=== PATIENT | female | born 1935 | race Caucasian/White ===

== ENCOUNTER 2021-05-01 23:03 | Inpatient (IN) | payer MEDICARE, OTHER ==
[2021-05-01 23:36] LABS: Hemoglobin 12.7 g/dL (12.0-16.0); Mean Corpuscular HGB CONC 33.2 g/dL (32.0-36.0); Mean Corpuscular Hemoglobin 29.9 pg (27.0-31.0); Mean Corpuscular Volume 90.1 fL (78.0-98.0); Mean Platelet Volume 8.3 fL (7.4-10.4); Platelet Count 364 thou/uL (130-400); RBC Distribution Width 11.2 % (11.5-14.5); Red Blood Cell (RBC) Count 4.26 mill/uL (4.20-5.40); White Blood Cell (WBC) Count 16.2 thou/uL (4.8-10.8)
[2021-05-01] MEDS ORDERED: hydrALAZINE 20 MG/ML VIAL ONE (23:55)
[2021-05-01] MEDS ORDERED: Nitroglycerin 2% Ointment 1 INCH/1 GM Packet ONE (23:55)
[2021-05-01 23:56] LABS: ALT (SGPT) 18 U/L (8-55); AST (SGOT) 23 U/L (5-34); Albumin 3.7 g/dL (3.4-4.8); Alkaline Phosphatase 81 U/L (40-110); Anion Gap 21 mmol/L (10-20); BUN (Urea Nitrogen) 29 mg/dL (9.8-20.1); Bilirubin, Total 0.4 mg/dL (0.2-1.2); Calc. Creatinine Clearance 0 mL/min (70-130); Calcium 10.3 mg/dL (7.8-10.44); Carbon Dioxide 20 mmol/L (23-31); Chloride 97 mmol/L (98-107); Globulin 3.9 g/dL (2.4-3.5); Glucose 133 mg/dL (83-110); Potassium 4.3 mmol/L (3.5-5.1); Protein, Total 7.6 g/dL (5.8-8.1); Sodium 134 mmol/L (136-145)
[2021-05-02 00:10] LABS: Lymphocytes 4 % (21-51); MDiff Complete? YES; Monocytes 7 % (0-10); Neutrophil 89 % (42-75); Platelet Morphology Comment Appears Adequate; RBC Morphology Normal
[2021-05-02] MEDS ORDERED: hydrALAZINE 20 MG/ML VIAL ONE (00:30)
[2021-05-02] MEDS ORDERED: cefTRIAXone\\ROCEPHIN 1 GM VIAL ONE (00:36)
[2021-05-02 01:20] LABS: Bilirubin Negative (Negative); Blood, Urine Trace (Negative); Clarity Clear (Clear); Glucose, Urine (Dipstick) Normal (Negative); Ketone, Urine 80 mg/dL (Negative); Leukocyte Negative Leu/uL (Negative); Nitrite Negative (Negative); Protein, Urine (Dipstick) 70 mg/dL (Neg-Trace); Specific Gravity, Urine 1.029 (1.002-1.036); Squamous Epithelial None Seen HPF (0-3); Urobilinogen Normal mg/dL (Less than 2); pH, Urine 5.5 (5.0-9.0)
[2021-05-02 01:22] LABS: Bacteria/HPF 1+ HPF (None Seen)
[2021-05-02] MEDS ORDERED: Azithromycin 500 MG VIAL ONE (01:27)
[2021-05-02] MEDS ORDERED: Ondansetron PF 4 MG/2 ML Vial ONE (01:27)
[2021-05-02] MEDS ORDERED: Pantoprazole 40 MG VIAL ONE (01:38)
[2021-05-02] MEDS ORDERED: Labetalol HCl 100 MG/20 ML VIAL SLOW IVP PRN (01:41)
[2021-05-02 02:14] LABS: SARS-CoV-2 NAA Rapid Test Not Detected (NotDetected)
[2021-05-02 02:21] LABS: Hemoglobin 11.4 g/dL (12.0-16.0)
[2021-05-02 02:45] LABS: Troponin I 0.029 ng/mL (< 0.028)
[2021-05-02] MEDS: Lactated Ringer's 1,000 ML IV SCH ×2 (05:23→18:55)
[2021-05-02 05:54] LABS: Band 2 % (5-11); Hemoglobin 10.8 g/dL (12.0-16.0); Lymphocytes 4 % (21-51); MDiff Complete? YES; Mean Corpuscular HGB CONC 33.9 g/dL (32.0-36.0); Mean Corpuscular Hemoglobin 30.8 pg (27.0-31.0); Mean Platelet Volume 7.5 fL (7.4-10.4); Monocytes 4 % (0-10); Neutrophil 90 % (42-75); Platelet Count 324 thou/uL (130-400); Platelet Morphology Comment Appears Adequate; RBC Distribution Width 11.2 % (11.5-14.5); RBC Morphology Normal; White Blood Cell (WBC) Count 14.2 thou/uL (4.8-10.8)
[2021-05-02 06:05] LABS: Troponin I 0.044 ng/mL (< 0.028)
[2021-05-02 06:10] LABS: ALT (SGPT) 13 U/L (8-55); AST (SGOT) 17 U/L (5-34); Alkaline Phosphatase 66 U/L (40-110); Anion Gap 17 mmol/L (10-20); BUN (Urea Nitrogen) 30 mg/dL (9.8-20.1); Bilirubin, Total 0.3 mg/dL (0.2-1.2); Calc. Creatinine Clearance 36 mL/min (70-130); Carbon Dioxide 22 mmol/L (23-31); Chloride 102 mmol/L (98-107); Globulin 2.5 g/dL (2.4-3.5); Glucose 121 mg/dL (83-110); Potassium 4.3 mmol/L (3.5-5.1); Protein, Total 5.5 g/dL (5.8-8.1); Sodium 137 mmol/L (136-145)
[2021-05-02] MEDS ORDERED: Enoxaparin Sodium 30 MG/0.3 ML SYRINGE SC SCH (09:00)
[2021-05-02] MEDS: Cefepime 2 GM in Sodium Chloride 0.9% 100 ML IVPB SCH ×2 (09:26→23:29)
[2021-05-02] MEDS: Pantoprazole 80 MG in Sodium Chloride 0.9% 100 ML IVPB SCH ×3 (09:26→20:11)
[2021-05-02 10:28] LABS: Hemoglobin 9.9 g/dL (12.0-16.0)
[2021-05-02] MEDS ORDERED: Lidocaine 1% PF 5 ML VIAL ONE (18:03)
[2021-05-02] MEDS ORDERED: PROPOFOL 200 MG/20 ML VIAL ONE (18:03)
[2021-05-03] MEDS: Ondansetron PF 4 MG/2 ML Vial IVP PRN (04:27)
[2021-05-03] MEDS: Pantoprazole 80 MG in Sodium Chloride 0.9% 100 ML IVPB SCH (04:32)
[2021-05-03] MEDS: Lactated Ringer's 1,000 ML IV SCH ×2 (08:38→22:06)
[2021-05-03] MEDS: Cefepime 2 GM in Sodium Chloride 0.9% 100 ML IVPB SCH ×2 (08:39→21:25)
[2021-05-03 12:15] LABS: #Lymphocytes 0.7 thou/uL (1.20-3.40); #Monocytes 1.5 thou/uL (0.11-0.59); #Neutrophils 10.7 thou/uL (1.40-6.50); %Basophils 0.2 % (0.0-1.0); %Eosinophils 0.3 % (0.0-10.0); %Lymphocytes 5.5 % (21.0-51.0); %Monocytes 11.5 % (0.0-10.0); %Neutrophils 82.6 % (42.0-75.0); Hemoglobin 10.7 g/dL (12.0-16.0); Mean Corpuscular HGB CONC 33.1 g/dL (32.0-36.0); Mean Corpuscular Hemoglobin 30.5 pg (27.0-31.0); Mean Corpuscular Volume 92.1 fL (78.0-98.0); Mean Platelet Volume 7.3 fL (7.4-10.4); Platelet Count 276 thou/uL (130-400); RBC Distribution Width 11.4 % (11.5-14.5); Red Blood Cell (RBC) Count 3.51 mill/uL (4.20-5.40)
[2021-05-03 12:25] LABS: INR-International Normal Ratio 1.2; Prothrombin Time 15.2 sec (12.0-14.7)
[2021-05-03 12:26] LABS: PTT 44.3 sec (22.9-36.1)
[2021-05-03 12:33] LABS: Anion Gap 13 mmol/L (10-20); BUN (Urea Nitrogen) 24 mg/dL (9.8-20.1); Calc. Creatinine Clearance 36 mL/min (70-130); Calcium 9.4 mg/dL (7.8-10.44); Carbon Dioxide 22 mmol/L (23-31); Chloride 106 mmol/L (98-107); Glucose 89 mg/dL (83-110); Potassium 4.1 mmol/L (3.5-5.1); Sodium 137 mmol/L (136-145)
[2021-05-03] MEDS ORDERED: Sodium Bicarbonate 2.5 MEQ/5 ML VIAL ONE (14:04)
[2021-05-03] MEDS ORDERED: Lidocaine 1% PF 5 ML VIAL ONE (14:04)
[2021-05-03 17:08] LABS: Actual Bicarbonate (HCO3a) 16.9 mEq/L (22-28); Base Excess (BEa) -6.2 mEq/L (-2.0 to +3.0); CO2 Tension 27.1 mmHg (35.0-45.0); Calcium, Ionized (arterial) 1.28 mmol/L (1.12-1.30); Carboxyhemoglobin (COHb) 0.3 gm% (0.0-3.0); O2 Tension (PaO2), arterial 90.5 mmHg (> 60.0); Potassium - ABG Lab 3.96 mmol/L (3.70-5.30); pH, Arterial 7.41 (7.35-7.45)
[2021-05-03 17:12] LABS: ALV-art Gradient 588.625 mmHg (0-20); Puncture Site RRA
[2021-05-03 17:28] LABS: #Basophils 0.2 thou/uL (0.0-0.2); #Lymphocytes 0.3 thou/uL (1.20-3.40); #Monocytes 1.3 thou/uL (0.11-0.59); #Neutrophils 12.4 thou/uL (1.40-6.50); %Basophils 1.1 % (0.0-1.0); %Eosinophils 0.1 % (0.0-10.0); %Lymphocytes 1.9 % (21.0-51.0); %Monocytes 9.3 % (0.0-10.0); %Neutrophils 87.6 % (42.0-75.0); Hemoglobin 11.8 g/dL (12.0-16.0); Mean Corpuscular HGB CONC 32.3 g/dL (32.0-36.0); Mean Corpuscular Hemoglobin 29.7 pg (27.0-31.0); Mean Platelet Volume 7.3 fL (7.4-10.4); Platelet Count 279 thou/uL (130-400); RBC Distribution Width 11.4 % (11.5-14.5); Red Blood Cell (RBC) Count 3.99 mill/uL (4.20-5.40); White Blood Cell (WBC) Count 14.2 thou/uL (4.8-10.8)
[2021-05-03 17:58] LABS: ALT (SGPT) 15 U/L (8-55); AST (SGOT) 23 U/L (5-34); Albumin 3.1 g/dL (3.4-4.8); Alkaline Phosphatase 71 U/L (40-110); Anion Gap 21 mmol/L (10-20); BUN (Urea Nitrogen) 25 mg/dL (9.8-20.1); Bilirubin, Total 0.5 mg/dL (0.2-1.2); Calc. Creatinine Clearance 33 mL/min (70-130); Calcium 9.2 mg/dL (7.8-10.44); Carbon Dioxide 16 mmol/L (23-31); Chloride 105 mmol/L (98-107); Globulin 3.1 g/dL (2.4-3.5); Glucose 97 mg/dL (83-110); Potassium 4.3 mmol/L (3.5-5.1); Protein, Total 6.2 g/dL (5.8-8.1); Sodium 138 mmol/L (136-145)
[2021-05-03] MEDS ORDERED: Heparin 10,000 UNITS/ 10 ML VIAL SLOW IVP SCH (21:30)
[2021-05-03] MEDS ORDERED: Melatonin 3 MG TAB PO SCH (22:30)
[2021-05-03] MEDS: Heparin 25,000 units/D5W 500 ML IVPB SCH (22:36)
[2021-05-03 22:50] LABS: Hemoglobin 11.8 g/dL (12.0-16.0); Platelet Count 287 thou/uL (130-400)
[2021-05-03 23:18] LABS: Critical Call Chem Troponin I RESULT DECREASING; Troponin I 0.689 ng/mL (< 0.028)
[2021-05-03 23:27] LABS: PTT Greater than 250.0 sec (22.9-36.1)
[2021-05-04 03:42] LABS: #Lymphocytes 0.6 thou/uL (1.20-3.40); #Monocytes 1.2 thou/uL (0.11-0.59); #Neutrophils 9.1 thou/uL (1.40-6.50); %Eosinophils 0.4 % (0.0-10.0); %Lymphocytes 5.8 % (21.0-51.0); %Monocytes 11.2 % (0.0-10.0); %Neutrophils 82.7 % (42.0-75.0); Hemoglobin 10.4 g/dL (12.0-16.0); Mean Corpuscular HGB CONC 33.3 g/dL (32.0-36.0); Mean Corpuscular Hemoglobin 30.3 pg (27.0-31.0); Mean Corpuscular Volume 91.1 fL (78.0-98.0); Mean Platelet Volume 7.8 fL (7.4-10.4); Platelet Count 247 thou/uL (130-400); RBC Distribution Width 11.4 % (11.5-14.5); Red Blood Cell (RBC) Count 3.43 mill/uL (4.20-5.40)
[2021-05-04 04:07] LABS: Anion Gap 16 mmol/L (10-20); BUN (Urea Nitrogen) 23 mg/dL (9.8-20.1); Calc. Creatinine Clearance 33 mL/min (70-130); Carbon Dioxide 19 mmol/L (23-31); Chloride 105 mmol/L (98-107); Glucose 111 mg/dL (83-110); Potassium 4.1 mmol/L (3.5-5.1); Sodium 136 mmol/L (136-145)
[2021-05-04 04:20] LABS: PTT Greater than 250.0 sec (22.9-36.1)
[2021-05-04] MEDS ORDERED: ABX RENAL DOSE IVPB PRN (08:08)
[2021-05-04 10:06] LABS: Hemoglobin 11.4 g/dL (12.0-16.0)
[2021-05-04] MEDS: Lactated Ringer's 1,000 ML IV SCH (12:03)
[2021-05-04 16:41] LABS: PTT 140.9 sec (22.9-36.1)
[2021-05-04] MEDS ORDERED: Cefepime 2 GM in Sodium Chloride 0.9% 100 ML IVPB SCH (21:00)
[2021-05-05 02:22] LABS: #Eosinphils 0.1 thou/uL (0.0-0.7); #Lymphocytes 0.6 thou/uL (1.20-3.40); #Monocytes 1.1 thou/uL (0.11-0.59); #Neutrophils 9.4 thou/uL (1.40-6.50); %Basophils 0.3 % (0.0-1.0); %Lymphocytes 5.3 % (21.0-51.0); %Monocytes 10.1 % (0.0-10.0); %Neutrophils 83.4 % (42.0-75.0); Hemoglobin 10.8 g/dL (12.0-16.0); Mean Corpuscular HGB CONC 33.5 g/dL (32.0-36.0); Mean Corpuscular Hemoglobin 30.7 pg (27.0-31.0); Mean Corpuscular Volume 91.7 fL (78.0-98.0); Mean Platelet Volume 7.8 fL (7.4-10.4); Platelet Count 272 thou/uL (130-400); RBC Distribution Width 11.4 % (11.5-14.5); Red Blood Cell (RBC) Count 3.52 mill/uL (4.20-5.40); White Blood Cell (WBC) Count 11.2 thou/uL (4.8-10.8)
[2021-05-05 02:53] LABS: Anion Gap 15 mmol/L (10-20); BUN (Urea Nitrogen) 22 mg/dL (9.8-20.1); Calc. Creatinine Clearance 33 mL/min (70-130); Carbon Dioxide 19 mmol/L (23-31); Chloride 104 mmol/L (98-107); Glucose 123 mg/dL (83-110); Potassium 3.9 mmol/L (3.5-5.1); Sodium 134 mmol/L (136-145)
[2021-05-05] MEDS: Lactated Ringer's 1,000 ML IV SCH ×3 (04:09→13:15)
[2021-05-05 08:28] VITALS: BMI 16.3
[2021-05-05] MEDS: Cefepime 2 GM in Sodium Chloride 0.9% 100 ML IVPB SCH ×2 (09:20→21:20)
[2021-05-05] MEDS ORDERED: Iopamidol 370 76% 50 ML VIAL FS ONE (09:51)
[2021-05-05] MEDS ORDERED: Lidocaine 1% (PF) 30 ML VIAL ONE (10:57)
[2021-05-05] MEDS: Heparin 25,000 units/D5W 500 ML IVPB SCH ×2 (13:19→14:01)
[2021-05-05 21:40] LABS: Hemoglobin 11.2 g/dL (12.0-16.0); Platelet Count 257 thou/uL (130-400)
[2021-05-06] MEDS: Lactated Ringer's 1,000 ML IV SCH ×2 (05:25→16:07)
[2021-05-06] MEDS: Apixaban 2.5 MG TAB PO SCH ×2 (08:38→21:58)
[2021-05-06] MEDS: Cefepime 2 GM in Sodium Chloride 0.9% 100 ML IVPB SCH ×2 (08:39→21:57)
[2021-05-06] MEDS: Ondansetron PF 4 MG/2 ML Vial IVP PRN (16:47)
[2021-05-06] MEDS: Acetaminophen 650 MG/20.3 ML UDCUP PO PRN ×2 (17:17→21:58)
[2021-05-07] MEDS ORDERED: Acetaminophen 325 MG Suppository PR PRN (01:51)
[2021-05-07 04:57] LABS: #Eosinphils 0.3 thou/uL (0.0-0.7); #Lymphocytes 0.7 thou/uL (1.20-3.40); #Monocytes 1.3 thou/uL (0.11-0.59); %Eosinophils 2.5 % (0.0-10.0); %Lymphocytes 5.3 % (21.0-51.0); %Monocytes 10.9 % (0.0-10.0); %Neutrophils 81.4 % (42.0-75.0); Hemoglobin 10.3 g/dL (12.0-16.0); Mean Corpuscular Hemoglobin 30.3 pg (27.0-31.0); Mean Corpuscular Volume 91.9 fL (78.0-98.0); Mean Platelet Volume 7.9 fL (7.4-10.4); Platelet Count 255 thou/uL (130-400); RBC Distribution Width 11.5 % (11.5-14.5); White Blood Cell (WBC) Count 12.3 thou/uL (4.8-10.8)
[2021-05-07 06:22] LABS: Chloride 104 mmol/L (98-107); Potassium 4.2 mmol/L (3.5-5.1); Sodium 134 mmol/L (136-145)
[2021-05-07 06:23] LABS: Calcium 9.1 mg/dL (7.8-10.44); Glucose 95 mg/dL (83-110)
[2021-05-07 06:25] LABS: Anion Gap 13 mmol/L (10-20); Carbon Dioxide 21 mmol/L (23-31)
[2021-05-07 06:27] LABS: Calc. Creatinine Clearance 35 mL/min (70-130)
[2021-05-07 06:28] LABS: BUN (Urea Nitrogen) 21 mg/dL (9.8-20.1)
[2021-05-07] MEDS: Lactated Ringer's 1,000 ML IV SCH ×2 (07:28→13:13)
[2021-05-07] MEDS: Cefepime 2 GM in Sodium Chloride 0.9% 100 ML IVPB SCH ×2 (09:17→19:55)
[2021-05-07] MEDS: Apixaban 2.5 MG TAB PO SCH ×2 (09:18→19:55)
[2021-05-07] MEDS ORDERED: Bisacodyl 10 MG SUPP PR PRN (10:21)
[2021-05-07] MEDS ORDERED: Megestrol Acetate 40 MG TAB PO SCH (14:15)
[2021-05-07] MEDS ORDERED: Furosemide 40 MG/4 ML VIAL SLOW IVP SCH (14:15)
[2021-05-07] MEDS: Megestrol Acetate 40 MG TAB PO SCH (19:54)
[2021-05-07 22:24] LABS: Hemoglobin 10.4 g/dL (12.0-16.0); Platelet Count 289 thou/uL (130-400)
[2021-05-08] MEDS: Megestrol Acetate 40 MG TAB PO SCH (08:47)
[2021-05-08] MEDS: Apixaban 2.5 MG TAB PO SCH ×2 (08:48→21:12)
[2021-05-08] MEDS: Cefepime 2 GM in Sodium Chloride 0.9% 100 ML IVPB SCH ×2 (08:48→21:13)
[2021-05-08] MEDS: Mirtazapine 15 MG TAB PO SCH (21:12)
[2021-05-09] MEDS: Apixaban 2.5 MG TAB PO SCH ×2 (08:14→20:40)
[2021-05-09] MEDS: Cefepime 2 GM in Sodium Chloride 0.9% 100 ML IVPB SCH ×2 (08:15→20:39)
[2021-05-09 09:22] LABS: #Eosinphils 0.4 thou/uL (0.0-0.7); #Lymphocytes 0.6 thou/uL (1.20-3.40); #Monocytes 1.2 thou/uL (0.11-0.59); #Neutrophils 10.3 thou/uL (1.40-6.50); %Basophils 0.3 % (0.0-1.0); %Eosinophils 3.1 % (0.0-10.0); %Monocytes 9.2 % (0.0-10.0); %Neutrophils 82.4 % (42.0-75.0); Hemoglobin 10.7 g/dL (12.0-16.0); Mean Corpuscular Hemoglobin 30.1 pg (27.0-31.0); Mean Corpuscular Volume 91.3 fL (78.0-98.0); Mean Platelet Volume 6.9 fL (7.4-10.4); Platelet Count 327 thou/uL (130-400); RBC Distribution Width 11.7 % (11.5-14.5); Red Blood Cell (RBC) Count 3.55 mill/uL (4.20-5.40); White Blood Cell (WBC) Count 12.5 thou/uL (4.8-10.8)
[2021-05-09 09:35] LABS: INR-International Normal Ratio 1.6; Prothrombin Time 19.1 sec (12.0-14.7)
[2021-05-09 09:45] LABS: ALT (SGPT) 10 U/L (8-55); AST (SGOT) 18 U/L (5-34); Albumin 2.4 g/dL (3.4-4.8); Alkaline Phosphatase 56 U/L (40-110); Anion Gap 13 mmol/L (10-20); BUN (Urea Nitrogen) 30 mg/dL (9.8-20.1); Bilirubin, Total 0.3 mg/dL (0.2-1.2); Calc. Creatinine Clearance 23 mL/min (70-130); Calcium 9.3 mg/dL (7.8-10.44); Carbon Dioxide 21 mmol/L (23-31); Chloride 104 mmol/L (98-107); Globulin 2.9 g/dL (2.4-3.5); Glucose 93 mg/dL (83-110); Potassium 3.7 mmol/L (3.5-5.1); Protein, Total 5.3 g/dL (5.8-8.1); Sodium 134 mmol/L (136-145)
[2021-05-09] MEDS: Dextrose 5 % And 0.9 % NaCl 1,000 ML IV SCH (09:52)
[2021-05-09] MEDS: Bisacodyl 10 MG SUPP PR SCH ×2 (09:56→17:35)
[2021-05-09] MEDS: Senokot S 8.6-50 MG TAB PO SCH ×2 (09:56→20:40)
[2021-05-09] MEDS ORDERED: Morphine 4 MG/ML VIAL SLOW IVP PRN (14:16)
[2021-05-09 14:17] LABS: SARS-CoV-2 PCR by NAA Not Detected (NotDetected)
[2021-05-09] MEDS: Morphine 4 MG/ML VIAL SLOW IVP PRN (17:57)
[2021-05-09] MEDS: Mirtazapine 15 MG TAB PO SCH (20:40)
[2021-05-09 22:01] LABS: Hemoglobin 10.3 g/dL (12.0-16.0); Platelet Count 352 thou/uL (130-400)
[2021-05-10] MEDS: Morphine 4 MG/ML VIAL SLOW IVP PRN ×3 (00:30→12:08)
[2021-05-10] MEDS ORDERED: Sodium Bicarbonate 2.5 MEQ/5 ML VIAL ONE (07:44)
[2021-05-10] MEDS ORDERED: Lidocaine 1% PF 5 ML VIAL ONE (07:44)
[2021-05-10] MEDS: Cefepime 2 GM in Sodium Chloride 0.9% 100 ML IVPB SCH (08:55)
[2021-05-10] MEDS: Senokot S 8.6-50 MG TAB PO SCH ×2 (08:56→21:25)
[2021-05-10] MEDS: Apixaban 2.5 MG TAB PO SCH ×2 (08:56→21:22)
[2021-05-10] MEDS: Dextrose 5 % And 0.9 % NaCl 1,000 ML IV SCH (08:59)
[2021-05-10] MEDS: Lorazepam 2 MG/ML VIAL SLOW IVP PRN (12:55)
[2021-05-10] MEDS ORDERED: Lorazepam 0.5 MG TAB PO SCH (15:30)
[2021-05-10] MEDS: Morphine 4 MG/ML VIAL SLOW IVP SCH ×2 (17:06→21:26)
[2021-05-10] MEDS: Aluminum & Magnesium Hydroxide 60 ML, diphenhydrAMINE 150 MG, Lidocaine 2% Viscous Solu... SSW SCH ×2 (17:07→21:25)
[2021-05-10] MEDS: Lorazepam 2 MG/ML VIAL SLOW IVP SCH (17:41)
[2021-05-10] MEDS: Mirtazapine 15 MG TAB PO SCH (21:24)
[2021-05-11] MEDS: Lorazepam 2 MG/ML VIAL SLOW IVP SCH ×5 (00:07→23:59)
[2021-05-11] MEDS: Morphine 4 MG/ML VIAL SLOW IVP SCH ×7 (02:03→21:15)
[2021-05-11] MEDS: Aluminum & Magnesium Hydroxide 60 ML, diphenhydrAMINE 150 MG, Lidocaine 2% Viscous Solu... SSW SCH ×4 (08:27→21:32)
[2021-05-11] MEDS: Apixaban 2.5 MG TAB PO SCH ×2 (08:27→21:18)
[2021-05-11] MEDS: Senokot S 8.6-50 MG TAB PO SCH ×2 (08:29→21:19)
[2021-05-11] MEDS ORDERED: Cefepime 2 GM in Sodium Chloride 0.9% 100 ML IVPB SCH (09:00)
[2021-05-11] MEDS: Lorazepam 2 MG/ML VIAL SLOW IVP PRN ×2 (15:46→20:08)
[2021-05-11] MEDS: Mirtazapine 15 MG TAB PO SCH (21:18)
[2021-05-11 21:46] LABS: Platelet Count 379 thou/uL (130-400)
[2021-05-12] MEDS: Morphine 4 MG/ML VIAL SLOW IVP SCH ×5 (01:19→17:20)
[2021-05-12] MEDS: Lorazepam 2 MG/ML VIAL SLOW IVP SCH ×4 (06:02→18:10)
[2021-05-12 08:26] VITALS: BP 107/63; TEMP 97.5
[2021-05-12] MEDS: Aluminum & Magnesium Hydroxide 60 ML, diphenhydrAMINE 150 MG, Lidocaine 2% Viscous Solu... SSW SCH ×3 (08:50→17:12)
[2021-05-12] MEDS: Apixaban 2.5 MG TAB PO SCH (08:51)
[2021-05-12] MEDS: Senokot S 8.6-50 MG TAB PO SCH (08:51)
[2021-05-12] MEDS: Morphine 4 MG/ML VIAL SLOW IVP PRN ×2 (15:07→18:17)
== END 2021-05-12 20:03 | disposition hospice, inpatient (51) | DRG 368 ==
LOC: ERS 23:03 → NEURO 05-02 00:55 → IMCU/EMU 05-04 00:16 → 2NO 05-04 18:53 → T4-A 05-07 13:13
PROVIDERS: ADMIT Internal Medicine; ATTEND Family Medicine
PROC: 0DJ08ZZ Inspection of Upper Intestinal Tract, Via Natural or Artificial Opening Endoscopic (ICD-10-PCS; principal; 2021-05-02)
PROC: 06H03DZ Insertion of Intraluminal Device into Inferior Vena Cava, Percutaneous Approach (ICD-10-PCS; 2021-05-05)
PROC: B5191ZZ Fluoroscopy of Inferior Vena Cava using Low Osmolar Contrast (ICD-10-PCS; 2021-05-05)
PROC: 0W9G3ZZ Drainage of Peritoneal Cavity, Percutaneous Approach (ICD-10-PCS; 2021-05-10)
DX: K21.01 Gastro-esophageal reflux disease with esophagitis, with bleeding (principal); Z20.822 Contact with and (suspected) exposure to COVID-19; Z66 Do not resuscitate; Z51.5 Encounter for palliative care; J69.0 Pneumonitis due to inhalation of food and vomit; E43 Unspecified severe protein-calorie malnutrition; I26.99 Other pulmonary embolism without acute cor pulmonale; Z68.1 Body mass index [BMI] 19.9 or less, adult; R18.8 Other ascites; C78.2 Secondary malignant neoplasm of pleura; J91.0 Malignant pleural effusion; F03.90 Unspecified dementia, unspecified severity, without behavioral disturbance, psychotic disturbance, mood disturbance, and anxiety; I16.0 Hypertensive urgency; I10 Essential (primary) hypertension; K44.9 Diaphragmatic hernia without obstruction or gangrene; I08.3 Combined rheumatic disorders of mitral, aortic and tricuspid valves; D64.9 Anemia, unspecified; Z86.73 Personal history of transient ischemic attack (TIA), and cerebral infarction without residual deficits; Z90.49 Acquired absence of other specified parts of digestive tract; Z98.49 Cataract extraction status, unspecified eye; Z79.899 Other long term (current) drug therapy
CPT/HCPCS: 36415; 36600; 37191; 49083; 51701; 70450; 71045; 71275; 74019; 74230; 76536; 76604; 76942; 80048; 80053; 81003; 81015; 82805; 83605; 83615; 83880; 84157; 84443; 84484; 85014; 85018; 85025; 85049; 85379; 85610; 85730; 87040; 87070; 87086; 87149; 87205; 88112; 88305; 93005; 93010; 93306; 93970; 96365; 96367; 96375; C1880; C9113; J0360; J0456; J0692; J0696; J1644; J1940; J1956; J2001; J2060; J2270; J2405; J2704; J3490; J7042; J7120; Q9967; S0179; U0002; U0003; U0005

== ENCOUNTER 2021-05-12 20:42 | Inpatient (IN) | payer OTHER ==
[2021-05-12] MEDS ORDERED: Morphine 4 MG/ML VIAL SLOW IVP PRN (20:50)
[2021-05-12] MEDS ORDERED: Lorazepam 2 MG/ML VIAL SLOW IVP PRN (20:50)
[2021-05-12] MEDS: Scopolamine 1.5 mg/72 hour Patch TOP SCH ×2 (21:11→21:28)
[2021-05-12] MEDS: Morphine 4 MG/ML VIAL SLOW IVP SCH (21:30)
[2021-05-13] MEDS: Lorazepam 2 MG/ML VIAL SLOW IVP SCH ×4 (00:05→18:07)
[2021-05-13] MEDS: Morphine 4 MG/ML VIAL SLOW IVP SCH ×9 (01:21→22:22)
[2021-05-13] MEDS ORDERED: Lorazepam 2 MG/ML VIAL SLOW IVP SCH (14:00)
[2021-05-14] MEDS: Lorazepam 2 MG/ML VIAL SLOW IVP SCH ×4 (00:25→17:35)
[2021-05-14] MEDS: Morphine 4 MG/ML VIAL SLOW IVP SCH ×12 (00:25→22:01)
[2021-05-14] MEDS: Lorazepam 2 MG/ML VIAL SLOW IVP PRN (10:43)
[2021-05-15] MEDS: Lorazepam 2 MG/ML VIAL SLOW IVP SCH ×5 (00:29→23:41)
[2021-05-15] MEDS: Morphine 4 MG/ML VIAL SLOW IVP SCH ×13 (00:31→23:42)
[2021-05-15] MEDS: Aluminum & Magnesium Hydroxide 60 ML, Lidocaine 2% Viscous Solution 30 ML, diphenhydrAM... SSW SCH ×2 (18:26→23:47)
[2021-05-15] MEDS: Scopolamine 1.5 mg/72 hour Patch TOP SCH (21:41)
[2021-05-16] MEDS: Morphine 4 MG/ML VIAL SLOW IVP SCH ×4 (01:29→07:46)
[2021-05-16] MEDS: Lorazepam 2 MG/ML VIAL SLOW IVP PRN (04:18)
[2021-05-16] MEDS: Lorazepam 2 MG/ML VIAL SLOW IVP SCH (05:40)
[2021-05-16] MEDS: Aluminum & Magnesium Hydroxide 60 ML, Lidocaine 2% Viscous Solution 30 ML, diphenhydrAM... SSW SCH (05:41)
[2021-05-16 08:46] VITALS: BP 54/39; TEMP 99
== END 2021-05-16 08:05 | disposition expired | DRG 951 ==
LOC: T4-A 20:42
PROVIDERS: ADMIT Internal Medicine Nephrology; ATTEND Internal Medicine Nephrology
DX: Z51.5 Encounter for palliative care (principal); J18.9 Pneumonia, unspecified organism; I26.99 Other pulmonary embolism without acute cor pulmonale; J90 Pleural effusion, not elsewhere classified; R18.8 Other ascites; Z20.822 Contact with and (suspected) exposure to COVID-19; I10 Essential (primary) hypertension; F03.90 Unspecified dementia, unspecified severity, without behavioral disturbance, psychotic disturbance, mood disturbance, and anxiety; F41.9 Anxiety disorder, unspecified; Z90.710 Acquired absence of both cervix and uterus
CPT/HCPCS: J2060; J2270; Q0163